=== PATIENT | female | born 1995 | race Two or more races ===

== ENCOUNTER 2017-02-19 17:32 | Emergency (ER) | payer MEDICAID ==
[2017-02-19 17:52] VITALS: RESP 16
--- NOTE | 2017-02-19 18:24 | EDPHY ---
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 Pain reproducible with range of motion. No discoloration. No paresthesia. No proximal distal pain or injury. PHYSICAL EXAM (Prior to examination, patient consented to physical exam, hands were washed and my usual and customary physical exam procedures followed) 1) GENERAL: Well-developed, well-nourished, alert and oriented. Appears to be in no acute distress. 2) HEAD: Normocephalic 3) HEENT: Pupils equal, round, reactive to light bilaterally. 4) LUNGS: Breathing comfortably. 5) MUSCULOSKELETAL: Tender to palpation dorsum of left wrist with lesion consistent with more than likely ganglion cyst noted which is nontender. No erythema. Soft compartments. Normal coloration. 6) SKIN: intact 7) VASCULAR: pulses and cap refill present are brisk 8) NEUROLOGIC: Radial, ulnar, median nerve function intact with no deficits appreciated on exam DIFFERENTIAL DIAGNOSIS: in no particular order including but not limited to fracture, sprain, compartment syndrome Procedure: Splint A volar Velcro splint was applied by ER it desktop support technician. After application of the splint I returned and re-examined the patient. The splint was adequately immobilizing the joint and distal to the splint the patient's circulation and sensation were intact. Patient shows no signs of compartment syndrome. Was given orthopedic precautions. (Diana Clarke) Constitutional: Initial Vital Signs Temperature (C) 37 C 02/19/17 17:40 Heart Rate 61 02/19/17 17:40 Respiratory Rate 16 02/19/17 17:40 Blood Pressure 111/57 L 02/19/17 17:40 O2 Sat (%) 97 02/19/17 17:40 O2 Delivery Mode Room Air Allergies/Adverse Reactions: No Known Allergies Allergy (Verified 02/19/17 17:49) Home Medications: Medication Instructions Recorded Ibuprofen [Motrin (*)] 600 mg PO Q6 #10 tab 02/19/17 MDM/Departure - MDM Imaging Results: Images reviewed by myself (Diana Clarke) ED Course/Re-evaluation: The patient was evaluated and managed by the Physician Rougher Machine Operator/ Nurse Practitioner. My co-signature indicates that I have reviewed this chart and I agree with the findings and plan of care as documented. I am the secondary supervising physician. (Tenisha Marte) - Depart Disposition: Home, Routine, Self-Care Clinical Impression: Ganglion cyst of volar aspect of left wrist, Left wrist pain Condition: Good Instructions: Ganglion Cysts (ED), Wrist Sprain (ED) Additional Instructions: Return to the ER immediately if you experience discoloration, have worsening pain, numbness, tingling, or any other symptoms that concern you. If you received x-rays in the emergency department today, be advised, that ligamentous , tendon, muscular, and other non-bony injury cannot be fully ruled out. Try to keep your affected extremity elevated above the level of your chest, and keep cold packs on the affected area, for the next 48 hours. Prescriptions: Ibuprofen [Motrin (*)] 600 mg PO Q6 #10 tab Referrals: Diony Brooks MD [Medical Doctor] - 1-2 days without fail
[2017-02-19 19:02] VITALS: BP 109/65; PULSE 54; TEMP 98.1; O2SAT 99
== END 2017-02-19 19:02 | disposition home or self-care (01) ==
DX: M67.432 Ganglion, left wrist (principal)
CPT/HCPCS: L3908

== ENCOUNTER 2017-08-03 16:48 | Emergency (ER) | payer MEDICAID ==
[2017-08-03 16:53] VITALS: TEMP 98.1
--- NOTE | 2017-08-03 17:50 | EDPHY ---
H & P Stated Complaint: Pain entire side of R abd since Sunday;denies vomiting,UTI sxs Time Seen by Provider: 08/03/17 17:23 - Personal History LMP (Females 10-55): Extended Cycle BCP/Inj Current Tetanus Diphtheria and Acellular Pertussis (TDAP): Yes - Medical/Surgical History Hx Asthma: No Hx Chronic Respiratory Disease: No Hx Diabetes: No Hx Cardiac Disease: No Hx Renal Disease: No Hx Cirrhosis: No Hx Alcoholism: No Hx HIV/AIDS: No Hx Splenectomy or Spleen Trauma: No Other PMH: . hydronephrosis in - Social History Smoking Status: Never smoked Constitutional: Initial Vital Signs Temperature (C) 36.7 C 08/03/17 16:50 Heart Rate 79 08/03/17 16:50 Respiratory Rate 18 08/03/17 16:50 Blood Pressure 109/76 08/03/17 16:50 O2 Sat (%) 98 08/03/17 16:50 O2 Delivery Mode Room Air Allergies/Adverse Reactions: No Known Allergies Allergy (Verified 08/03/17 16:54) Home Medications: Medication Instructions Recorded Control Pills 08/03/17 Medical Decision Making - Diagnostics Imaging Results: Imaging Impressions Abdomen/Pelvis CT 08/03/17 17:53 Impression: 1. Moderate constipation. No CT findings for appendicitis. 2. 3.5 cm cyst right ovary. IUD in the endometrial cavity. Results discussed with Art Bhakta PA-C, 03 August 2017 at 1835 hours. Attention: This CT examination is specifically designed to evaluate patients who are clinically suspected of having acute obstructive uropathy. This examination does not use radiographic contrast, and as such, provides only a limited evaluation of the abdomen, pelvis and retroperitoneum. If there is further clinical suspicion for pathological conditions other than obstructive uropathy, a complete CT evaluation of the abdomen and pelvis utilizing intravenous, oral, and rectal contrast should be considered. Pelvic/Renal Ultrasound 08/03/17 18:38 Impression: 3.3 cm simple cyst right ovary with no evidence for torsion. Results called and discussed with Martell Mar MD, at 2013 hours 03 August 2017. Imaging: Discussed imaging studies w/ call center manager Radiologist ED Course/Re-evaluation: CHIEF COMPLAINT: R flank pain HISTORY OF PRESENT ILLNESS: The patient is a 22 y/o female arriving with her friend complaining of right flank pain for the last 4 days. Her pain is primarily localized along her right lower lateral torso and radiates radiates somewhat towards her lower right abdomen. Her pain was initially intermittent, but has become constant over the last 24 hours. She denies fever, vomiting, dysuria, or other complaints. She has a history of similar symptoms previously that were attributed to a kidney infection. She denies chance of and uses hormonal control. REVIEW OF SYSTEMS: A 10 point review of systems was performed and is negative with the exception of the elements mentioned in the history of present illness. PHYSICAL EXAM: General Appearance: Alert, well hydrated, appropriate, and non-toxic appearing. Head: Atraumatic without scalp tenderness or obvious injury Eyes: Pupils equal, round, reactive to light and accommodation, EOMI, no trauma , no injection. Nose: Atraumatic, no rhinorrhea, clear. Throat: Mucus membranes moist. Neck: Supple Respiratory: No retractions, no distress, no wheezes, and no accessory muscle use. Lungs are clear to auscultation bilaterally. Cardiovascular: Regular rate and rhythm, no murmurs, rubs, or gallops. Good capillary refill all extremities. Gastrointestinal: Abdomen is soft, non-tender, non-distended, no masses, no rebound, no guarding, no peritoneal signs. Musculoskeletal: Tenderness along right lateral lower torso around level of 12th rib. Normal active ROM of all extremities, atraumatic. Neurological: Alert, appropriate, and interactive. The patient has non-focal cranial nerves, motor, sensory, and cerebellar exam. Skin: No rashes, good turgor, no nodules on palpation. PAST MEDICAL HISTORY: Kidney infection PAST SURGICAL HISTORY: Denies SOCIAL HISTORY: Friend at bedside. Lives in [place]. Employed. DIAGNOSTICS/PROCEDURES/CRITICAL CARE TIME: Abdominal CT: Right ovarian cyst, normal appendix Ovarian US: no torsion DIFFERENTIAL DIAGNOSIS: The differential diagnosis for the patient's flank pain included but was not limited to musculoskeletal causes, kidney stone, pyelonephritis, shingles, diverticulitis, appendicitis, and aortic aneurysm. MEDICAL DECISION MAKING: This is a 22 y/o female who presents with a 4-day history of right-sided lateral torso pain that radiates slightly into her abdomen. She denies any other symptoms. Plan for IV, labs, UA, and abdominal CT. 1L IV NS administered. CT shows right ovarian cyst and a normal appendix. Plan for ovarian US to rule out torsion. US does not show torsion. Reassessed patient and discussed results. She will be discharged home with standard ovarian cyst follow up and care instructions. Return precautions discussed. She agrees with plan for discharge. - Data Points Laboratory Results: Laboratory Results 08/03/17 17:32 08/03/17 17:32 08/03/17 08/03/17 08/03/17 17:53 17:32 17:32 WBC RBC Hgb Hct MCV MCH MCHC RDW Plt Count MPV Neut % (Auto) Lymph % (Auto) Bay % (Auto) Eos % (Auto) Baso % (Auto) Nucleat RBC Rel Count Absolute Neuts (auto) Absolute Lymphs (auto) Absolute Monos (auto) Absolute Eos (auto) Absolute Basos (auto) Absolute Nucleated RBC Immature Gran % Immature Gran # Sodium 143 mEq/L mEq/L (134-144) Potassium 3.4 mEq/L L mEq/L (3.5-5.2) Chloride 101 mEq/L mEq/L (97-110) Carbon Dioxide 26 mEq/l mEq/l (22-31) Anion Gap 16 mEq/L mEq/L (8-16) BUN 10 mg/dL mg/dL (7-23) Creatinine 0.6 mg/dL mg/dL (0.6-1.0) Estimated GFR > 60 Glucose 90 mg/dL mg/dL (70-100) Calcium 9.7 mg/dL mg/dL (8.5-10.4) Total Bilirubin 0.4 mg/dL mg/dL (0.1-1.4) Conjugated Bilirubin 0.1 mg/dL mg/dL (0.0-0.5) Unconjugated Bilirubin 0.3 mg/dL mg/dL (0.0-1.1) AST 30 IU/L IU/L (14-46) ALT 34 IU/L IU/L (9-52) Alkaline Phosphatase 123 IU/L IU/L (38-126) Total Protein 8.0 g/dL g/dL (6.3-8.2) Albumin 4.3 g/dL g/dL (3.5-5.0) Lipase 81 IU/L IU/L (23-300) Beta HCG, Qual NEGATIVE Urine Color YELLOW Urine Appearance HAZY Urine pH 7.0 (5.0-7.5) Ur Specific [place] 1.018 (1.002-1.030) Urine Protein NEGATIVE (NEGATIVE) Urine Ketones NEGATIVE (NEGATIVE) Urine Blood NEGATIVE (NEGATIVE) Urine Nitrate NEGATIVE (NEGATIVE) Urine Bilirubin NEGATIVE (NEGATIVE) Urine Urobilinogen NEGATIVE EU EU (0.2-1.0) Ur Leukocyte Esterase NEGATIVE (NEGATIVE) Urine Glucose NEGATIVE (NEGATIVE) 08/03/17 17:32 WBC 8.06 10^3/uL 10^3/uL (3.80-9.50) RBC 4.86 10^6/uL 10^6/uL (4.18-5.33) Hgb 15.2 g/dL g/dL (12.6-16.3) Hct 44.0 % % (38.0-47.0) MCV 90.5 fL fL (81.5-99.8) MCH 31.3 pg pg (27.9-34.1) MCHC 34.5 g/dL g/dL (32.4-36.7) RDW 12.0 % % (11.5-15.2) Plt Count 286 10^3/uL 10^3/uL (150-400) MPV 10.3 fL fL (8.7-11.7) Neut % (Auto) 57.6 % % (39.3-74.2) Lymph % (Auto) 31.9 % % (15.0-45.0) Bay % (Auto) 8.1 % % (4.5-13.0) Eos % (Auto) 1.6 % % (0.6-7.6) Baso % (Auto) 0.6 % % (0.3-1.7) Nucleat RBC Rel Count 0.0 % % (0.0-0.2) Absolute Neuts (auto) 4.64 10^3/uL 10^3/uL (1.70-6.50) Absolute Lymphs (auto) 2.57 10^3/uL 10^3/uL (1.00-3.00) Absolute Monos (auto) 0.65 10^3/uL 10^3/uL (0.30-0.80) Absolute Eos (auto) 0.13 10^3/uL 10^3/uL (0.03-0.40) Absolute Basos (auto) 0.05 10^3/uL 10^3/uL (0.02-0.10) Absolute Nucleated RBC 0.00 10^3/uL 10^3/uL (0-0.01) Immature Gran % 0.2 % % (0.0-1.1) Immature Gran # 0.02 10^3/uL 10^3/uL (0.00-0.10) Sodium Potassium Chloride Carbon Dioxide Anion Gap BUN Creatinine Estimated GFR Glucose Calcium Total Bilirubin Conjugated Bilirubin Unconjugated Bilirubin AST ALT Alkaline Phosphatase Total Protein Albumin Lipase Beta HCG, Qual Urine Color Urine Appearance Urine pH Ur Specific [place] Urine Protein Urine Ketones Urine Blood Urine Nitrate Urine Bilirubin Urine Urobilinogen Ur Leukocyte Esterase Urine Glucose Medications Given: Discontinued Medications Sodium Chloride (Ns) 1,000 mls @ 0 mls/hr IV EDNOW ONE; Wide Open PRN Reason: Protocol Stop: 08/03/17 17:54 Last Admin: 08/03/17 18:05 Dose: 1,000 mls Departure - Departure Disposition: Home, Routine, Self-Care Clinical Impression: Ovarian cyst Qualifiers: Laterality: right Qualified Code(s): N83.201 - Unspecified ovarian cyst, right side Condition: Good Instructions: Ovarian Cyst (ED) Additional Instructions: 1. Take 600mg ibuprofen every 6-8 hours as needed for pain over the next few days. 2. Follow up with your OBGYN next week. 3. Return to the ED for severe pain, uncontrollable vomiting, inability to urinate, or other worsening of condition. Referrals: Jacki Mcneill MD [Primary Care Provider] - As per Instructions Manuel Farias MD [Medical Doctor] - As per Instructions Report Scribed for: Martell Mar Report Scribed by: Tracey Bernstein Date of Report: 08/03/17 Time of Report: 17:56
[2017-08-03] MEDS ORDERED: NS 1,000 ML IV ONE (17:53)
[2017-08-03 17:59] LABS: % IMMATURE GRANULYOCYTES 0.2 % (0.0-1.1); ABSOLUTE IMMATURE GRANULOCYTES 0.02 10^3/uL (0.00-0.10); ADD DIFF? NO; ADD MORPH? NO; ADD SCAN? NO; ATYPICAL LYMPHOCYTE FLAG 20 (0-99); FRAGMENT RBC FLAG 0 (0-99); HEMOGLOBIN 15.2 g/dL (12.6-16.3); LEFT SHIFT FLG 0 (0-99); LIPEMIA HEMOLYSIS FLAG 90 (0-99); MEAN CELL HEMOGLOBIN 31.3 pg (27.9-34.1); MEAN CELL HEMOGLOBIN CONCENTR. 34.5 g/dL (32.4-36.7); MEAN CELL VOLUME 90.5 fL (81.5-99.8); MEAN PLATELET VOLUME 10.3 fL (8.7-11.7); PLATELET CLUMPS FLAG 0 (0-99); PLATELET COUNT 286 10^3/uL (150-400); RED BLOOD CELL COUNT 4.86 10^6/uL (4.18-5.33)
[2017-08-03 18:13] LABS: ALANINE AMINOTRANSFERASE 34 IU/L (9-52); ALBUMIN 4.3 g/dL (3.5-5.0); ALKALINE PHOSPHATASE 123 IU/L (38-126); ANION GAP 16 mEq/L (8-16); ASPARTATE AMINOTRANSFERASE 30 IU/L (14-46); BILIRUBIN,TOTAL 0.4 mg/dL (0.1-1.4); BILIRUBIN-CONJUGATED 0.1 mg/dL (0.0-0.5); BILIRUBIN-UNCONJUGATED 0.3 mg/dL (0.0-1.1); CALCIUM 9.7 mg/dL (8.5-10.4); CARBON DIOXIDE 26 mEq/l (22-31); CHLORIDE 101 mEq/L (97-110); CREATININE 0.6 mg/dL (0.6-1.0); GLOMERULAR FILTRATION RATE > 60; GLUCOSE 90 mg/dL (70-100); POTASSIUM 3.4 mEq/L (3.5-5.2); SODIUM 143 mEq/L (134-144)
[2017-08-03 18:37] LABS: COLOR YELLOW; LEUKOCYTE ESTERASE,URINE NEGATIVE (NEGATIVE); NITRITE,URINE NEGATIVE (NEGATIVE)
[2017-08-03 18:56] VITALS: RESP 17
[2017-08-03 20:40] VITALS: BP 107/66; PULSE 70; O2SAT 97
== END 2017-08-03 20:41 | disposition home or self-care (01) ==
DX: N83.201 Unspecified ovarian cyst, right side (principal); E86.9 Volume depletion, unspecified

== ENCOUNTER 2018-11-06 19:38 | Emergency (ER) | payer MEDICAID ==
[2018-11-06 19:56] VITALS: BP 111/76
--- NOTE | 2018-11-06 20:16 | EDPHY ---
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 The pain radiates up into her right forearm. Denies weakness, decreased range of motion, paresthesias. Patient reports that the pain is worse at the end of the day. No history of gout. Denies skin color changes. Modifying factors: None Comment: ROS: A comprehensive 10 system review of systems is otherwise negative aside from elements mentioned in the history of present illness. MEDICAL/SURGICAL/SOCIAL HISTORY: Medical history: Generally healthy. Takes oral control pills. LMP 2-3 weeks ago. . hydronephrosis in Surgical history: Denies Social history: Never smoked. CONSTITUTIONAL: Polite and cooperative young adult female, awake and alert, no obvious distress HEENT: Atraumatic and normocephalic. NECK: supple, no midline tenderness Cardiovascular: Normal S1/S2, regular rate, regular rhythm, without murmur rub or gallop. PULMONARY/CHEST: Symmetrical and nontender. Clear to auscultation bilaterally. Good air movement. No accessory muscle usage. ABDOMEN: Soft, nondistended, no ecchymosis. EXTREMITIES: 2/2 pulses, strength 5/5, right WRIST: Extension to 70, flexion to 80, radial deviation to 20 degree, ulnar deviation to 30, no scaphoid tenderness, no tenderness over ulnar styloid, no tenderness over radial styloid , no pain with Keegan test, no pain with Phalen test, no pain with Tinel test right index finger shows mild swelling at the PIP and MCP joint but no skin color changes with good range of motion; no Kanavel's signs. DIP/PIP/MCP flexion/extension intact with good light touch sensation. no deformities, no clubbing, no cyanosis or edema. NEUROLOGICAL: no focal neuro deficits. GCS 15. Light touch sensation intact. SKIN: Warm and dry, no erythema. no rash. Good capillary refill. Source: Patient Exam Limitations: No limitations - Personal History LMP (Females 10-55): 22-28 Days Ago Current Tetanus Diphtheria and Acellular Pertussis (TDAP): Yes - Medical/Surgical History Hx Asthma: No Hx Chronic Respiratory Disease: No Hx Diabetes: No Hx Cardiac Disease: No Hx Renal Disease: No Hx Cirrhosis: No Hx Alcoholism: No Hx HIV/AIDS: No Hx Splenectomy or Spleen Trauma: No Other PMH: . hydronephrosis in - Social History Smoking Status: Never smoked Constitutional: Initial Vital Signs Temperature (C) 36.8 C 11/06/18 19:54 Heart Rate 72 11/06/18 19:54 Respiratory Rate 16 11/06/18 19:54 Blood Pressure 111/76 11/06/18 19:54 O2 Sat (%) 97 11/06/18 19:54 O2 Delivery Mode Room Air Allergies/Adverse Reactions: No Known Allergies Allergy (Verified 08/03/17 16:54) Home Medications: Medication Instructions Recorded Control Pills 08/03/17 Medical Decision Making - Diagnostics Imaging Results: Imaging Impressions Hand X-Ray 11/06/18 20:21 Impression: Soft tissue swelling associated with the index finger, with no radiopaque foreign body or underlying osseous abnormality identified. Procedures: Procedure: Splint placement. A right finger splint was applied. After application of the splint I returned and re-examined the patient. The splint was adequately immobilizing the joint and distal to the splint the patient's circulation and sensation was intact. ED Course/Re-evaluation: Vital signs reviewed and stable upon arrival. X-ray ordered and my read shows no fracture, dislocation, soft tissue swelling Placed in finger splint for suspected overuse injury versus tendinitis No signs of neurovascular compromise/tenting of skin/compartment syndrome/ extremities and joints examined above and below area of concern and are neurovascularly intact/cellulitis/tenosynovitis/gouty arthropathy/carpal tunnel syndrome. This patient was seen under the supervision of my secondary supervising physician. I evaluated care for this patient independently. Discussed this patient with Dr. Hickey who did not see the patient. Differential Diagnosis: Differential diagnosis includes but is not limited to fracture, foreign body, tendinitis, tendon rupture, tenosynovitis, gouty arthropathy. Departure - Departure Disposition: Home, Routine, Self-Care Clinical Impression: Tendinitis of finger of right hand Condition: Good Instructions: Tendinitis (ED) Additional Instructions: Wear the splint while out of bed or after work to decrease mobility. Take Tylenol 650 mg every 4 hours and/or Ibuprofen 600 mg every 8 hours with food as needed for pain. Apply ice for 30 minutes at a time; 2-3 times per day for the next 1-2 days. Follow up with Orthopedics/Hand in 1-2 weeks if symptoms persist at which time they will evaluate and recommend with you if conservative management versus further imaging is indicated. The x-rays obtained in the emergency department today demonstrate no evidence of an obvious fracture. Referrals: Jacki Mcneill MD [Primary Care Provider] - As per Instructions Mario Zaragoza MD [Medical Doctor] - As per Instructions
== END 2018-11-06 20:51 | disposition home or self-care (01) ==
DX: M77.9 Enthesopathy, unspecified (principal)
CPT/HCPCS: L3925

== ENCOUNTER 2019-03-15 20:28 | Emergency (ER) | payer MEDICAID | END 2019-03-15 22:35 | disposition home or self-care (01) ==